=== PATIENT | female | born 1985 | race Caucasian/White ===

== ENCOUNTER 2017-01-08 00:44 | Emergency (ER) | payer OTHER ==
[~2017-01-08] VITALS: Ht 154.9 cm; Wt 72.6 kg
[~2017-01-08 00:44] MED LIST: IBUP-974 PO
[2017-01-08 00:48] VITALS: BP 151/89
--- NOTE | 2017-01-08 03:10 | NUR ---
PATIENT LEFT WITHOUT BEING SEEN BY DR. NORRIS. NO FURTHER CARE PROVIDED FOR PATIENT.
--- NOTE | 2017-01-08 03:11 | NUR ---
Cole troy in [facility] - 01/08/17 at 0312 by JO ANN Patient ambulated to bed 05.
== END 2017-01-08 03:10 | disposition left against medical advice (07) ==
LOC: MED 00:44
DX: J02.9 Acute pharyngitis, unspecified (principal); R51 Headache; R11.10 Vomiting, unspecified; Z53.21 Procedure and treatment not carried out due to patient leaving prior to being seen by health care provider

== ENCOUNTER 2017-07-09 18:43 | Emergency (ER) | payer OTHER ==
[~2017-07-09] VITALS: Ht 154.9 cm; Wt 75.9 kg
[2017-07-09 18:52] VITALS: BP 141/90
--- NOTE | 2017-07-09 19:09 | NUR ---
PT TAKEN TO BED 3
--- NOTE | 2017-07-09 19:15 | NUR ---
PATIENT IS A 32 Y/O FEMALE WHO PRESENTS TO THE ED C/O PALPITATIONS. PT REPORTS, "I THINK MY HEART HURTS." PT REPORTS 8/10 CHEST PAIN THAT DOES NOT RADIATE. PT DENIES, SOB, REPORTS NAUSEA DENIES VOMITING/DIARRHEA. PT AAOX4, RR EVEN/UNLABORED. PT REPOSTIONED FOR COMFORT, BED IN LOWEST POSITION. ER MD DR. ZHANG NOTIFIED. WILL CONTINUE TO MONITOR.
[2017-07-09] MEDS ORDERED: DIAZEPAM 5 MG TAB PO ONE (20:10)
[2017-07-09 21:28] VITALS: BP 137/87
--- NOTE | 2017-07-09 21:28 | NUR ---
Patient discharged with v/s stable. Written and verbal after care instructions given and explained. Patient alert, oriented and verbalized understanding of instructions. Ambulatory with steady gait. All questions addressed prior to discharge. ID band removed. Patient advised to follow up with PMD. Rx of VALIUM given. Patient educated on indication of medication including possible reaction and side effects. Opportunity to ask questions provided and answered.
== END 2017-07-09 21:28 | disposition home or self-care (01) ==
LOC: MED 18:43
DX: R06.02 Shortness of breath (principal); T40.4X5A Adverse effect of other synthetic narcotics, initial encounter; M54.2 Cervicalgia; R51 Headache; M54.5 Low back pain; J45.909 Unspecified asthma, uncomplicated; Z79.899 Other long term (current) drug therapy; Z90.710 Acquired absence of both cervix and uterus; Z88.5 Allergy status to narcotic agent; Y92.89 Other specified places as the place of occurrence of the external cause
CPT/HCPCS: 93005; 99283